=== PATIENT | female | born 1955 | race Caucasian/White ===

== ENCOUNTER 2016-09-09 17:45 | Emergency (ER) | payer MEDICAID ==
[2016-09-09 17:51] VITALS: BP 121/82; BMI 26.2
--- NOTE | 2016-09-09 18:26 | DR.GENAD ---
HPI - PCP Primary Care Physician: CHRISTA Eaton HPI Comment HPI Comment: HISTORY BELOW. - Complaint/Symptoms Chief Complaint Doctors Comments: PATIENT SAID SHE FEEL CONTRATION IN HER PELVIC AREA MAIN RLQ OF ABDOMEN. SHE BELIEVE SHE IS FOR 24 WEEKS. HER ABDOMEN IS GETTING BIGGER. NO VAGINAL BLEEDING OR DISCHARGE. HAVE 4 ADULT CHILDREN. NO VOMITING BUT NAUSEATED. Chief Complaint:: STATES SHE IS 23-24 WEEKS. CONTRACTIONS STARTING APPROX 0300 THIS AM. - Nurses notes reviewed Nurses Notes Review: Yes - Source History Provided: Patient - Mode of Arrival Mode of Arrival: Ambulatory - Timing Onset of Chief Complaint: 09/09/16 Came on: Suddenly - Duration Duration: Constant Duration: Days - Severity Severity: Moderate PMH - PMH Past Medical History: Yes Past Medical History: Arthritis, CHF, CVA, Hypertension, CO Past Surgical History: Yes Surgical History: , FOOD SERVICE Surgery - Family History History of Family Medical Conditions: No - Social History Does patient currently use any type of tobacco product: No Have you used tobacco products in the last 12 months: No Type of Tobacco Use: None Does any household member use tobacco: No Alcohol Use: None Do you use any recreational Drugs:: No Lives With: Spouse Lives Where: Home - infectious screening In the last 2 months have you had wt loss of >10#?: NO Have you had fever, night sweats or hemotysis?: No Have you traveled outside the country in the last 6 months?: No Isolation: Standard ROS - Review of Systems Constitutional: No Symptoms Reported Eyes: No Symptoms Reported ENTM: No Symptoms Reported Respiratoy: No Symptoms Reported Cardiovascular: No Symptoms Reported Gastrointestinal/Abdominal: Abdominal Pain, Nausea Genitourinary: Other (POST MENOPAUSAL FEMALE.). negative: Dysuria, Frequency, Hematuria Neurological: No Symptoms Reported Musculoskeletal: No Symptoms Reported Integumentary: No Symptoms Reported Hematologic/Lymphatic: No Symptoms Reported Endocrine: No Symptoms Reported All Other Systems: Reviewed and Negative PE - Vital Signs Vitals: Temperature 98.3 F Pulse Rate 111 Respiratory Rate 20 Blood Pressure 121/82 O2 Sat by Pulse Oximetry 98 - General Limitations: No Limitations General Appearance: Alert - Head Head Exam: Normal Inspection - Eyes Eye exam: Normal Appearance - ENT ENT Exam: Normal External Ear Exam External Ear Exam: Normal External Inspection TM/Canal Exam: Bilateral Normal Nose Exam: Normal Nose Exam Mouth Exam: Normal Inspection Throat Exam: Normal Inspection - Neck Neck Exam: Normal Inspection - Chest Chest Inspection: Symmetric Chest Wall Rise - Respiratory Respiratory Exam: Normal Lung Sounds Bilat Respiratory Exam: Bilateral Clear to Auscultation - Cardiovascular Cardiovascular Exam: Regular Rate, Normal Rhythm, Normal Heart Sounds - Abdominal Exam Abdominal Exam: Normal Bowel Sounds, Soft, Tenderness Abdominal Tenderness: RLQ (MOST TENDERNESS.), Diffuse, Moderate - Extremities Extremities Exam: Normal Inspection - Back Back Exam: Normal Inspection - Neurologic Neurological Exam: Alert, Oriented X3 - Psychiatric Psychiatric Exam: Normal Affect, Normal Mood - Skin Skin Exam: Normal Color MDM - Additional Information Additional Information Obtained From: Family - Differential Diagnosis Differential Diagnosis: ABDOMINAL PAIN, BOWEL OBSTRUCTION, UTERINE FIBROID, OVARIAN CYST, Course - Treatment Treatment: SEE ORDERS. - Education/Counseling Education/Counseling: Patient, Family, Education Educated On: Treatment, Diagnosis, Needs for Follow Up ROR - Labs Reviewed Laboratory Results Reviewed?: Yes Result Diagrams: 09/09/16 18:35 09/09/16 18:35 Laboratory: WBC 9.0 X10^3/uL (3.6-10.0) 09/09/16 18:35 RBC 4.34 X10^6/uL (3.5-5.4) 09/09/16 18:35 Hgb 13.3 g/dL (12.0-16.0) 09/09/16 18:35 Hct 38.1 % (36.0-47.0) 09/09/16 18:35 MCV 87.9 fL (80.0-100.0) 09/09/16 18:35 MCH 30.7 pg (27.0-34.0) 09/09/16 18:35 MCHC 35.0 g/dL (33.0-35.0) 09/09/16 18:35 RDW 14.0 % (11.6-16.5) 09/09/16 18:35 Plt Count 213 X10^3/uL (150.0-450.0) 09/09/16 18:35 MPV 9.1 fL (7.4-11.0) 09/09/16 18:35 Neut % 67.8 % (42.0-75.0) 09/09/16 18:35 Lymph % 22.9 % (21.0-51.0) 09/09/16 18:35 [place] % 6.4 % (0.0-13.0) 09/09/16 18:35 Eos % 2.1 % (0.9-2.9) 09/09/16 18:35 Baso % 0.8 % (0.2-1.0) 09/09/16 18:35 Neut # 6.1 x10^3/uL (2.2-4.8) H 09/09/16 18:35 Lymph # 2.1 X10^3/uL (1.3-2.9) 09/09/16 18:35 [place] # 0.6 x10^3/uL (0.3-0.8) 09/09/16 18:35 Eos # 0.2 x10^3/uL (0.0-0.2) 09/09/16 18:35 Baso # 0.1 X10^3/uL (0.0-0.1) 09/09/16 18:35 Absolute Nucleated RBC 0.0 /100WBC 09/09/16 18:35 Sodium 138 mmol/L (136-145) 09/09/16 18:35 Corrected Sodium 139 mmol/L (136-145) 09/09/16 18:35 Potassium 3.0 mmol/L (3.5-5.1) L* 09/09/16 18:35 Chloride 103 mmol/L (98-107) 09/09/16 18:35 Carbon Dioxide 24.5 mmol/L (21-32) 09/09/16 18:35 BUN 8 mg/dL (7-18) 09/09/16 18:35 Creatinine 1.04 mg/dL (0.55-1.02) H 09/09/16 18:35 Est GFR (MDRD) Af Amer > 60 (>60) 09/09/16 18:35 Est GFR (MDRD) Non-Af 57 (>60) L 09/09/16 18:35 Glucose 130 mg/dL (65-99) H 09/09/16 18:35 Calcium 8.3 mg/dL (8.5-10.1) L 09/09/16 18:35 Corrected Calcium TNP 09/09/16 18:35 Total Bilirubin 0.20 mg/dL (0.2-1.0) 09/09/16 18:35 AST 14 Units/L (15-37) L 09/09/16 18:35 ALT 21 Units/L (12-78) 09/09/16 18:35 Alkaline Phosphatase 62 Units/L (46-116) 09/09/16 18:35 Total Protein 7.2 g/dL (6.4-8.2) 09/09/16 18:35 Albumin 3.6 g/dL (3.4-5.0) 09/09/16 18:35 Globulin 3.6 g/dL (2.5-4.5) 09/09/16 18:35 Albumin/Globulin Ratio 1.0 Ratio (1.1-2.1) L 09/09/16 18:35 HCG, Qual Negative <10 mIU/mL 09/09/16 18:35 Specimen Type Clean catch urine 09/09/16 18:44 Urine Color Yellow (YELLOW) 09/09/16 18:44 Urine Appearance Clear (CLEAR) 09/09/16 18:44 Urine pH 7.0 (5.0 - 8.0) 09/09/16 18:44 Ur Specific [place] 1.010 (1.000-1.030) 09/09/16 18:44 Urine Protein Negative (NEGATIVE) 09/09/16 18:44 Urine Glucose (UA) Negative (NEGATIVE) 09/09/16 18:44 Urine Ketones Negative (NEGATIVE) 09/09/16 18:44 Urine Occult Blood 4+ (NEGATIVE) 09/09/16 18:44 Urine Nitrite Negative (NEGATIVE) 09/09/16 18:44 Urine Bilirubin Negative (NEGATIVE) 09/09/16 18:44 Urine Urobilinogen Normal (NORMAL) 09/09/16 18:44 Ur Leukocyte Esterase 1+ (NEGATIVE) 09/09/16 18:44 Urine RBC 0-3 /HPF (NEGATIVE) 09/09/16 18:44 Urine WBC 2-4 /HPF (NEGATIVE) 09/09/16 18:44 Ur Squamous Epith Cells Moderate /HPF (NEGATIVE) 09/09/16 18:44 Urine Bacteria Trace /HPF (NEGATIVE) 09/09/16 18:44 Ur Culture Indicated? No/not indicated 09/09/16 18:44 - XRAY XRAY Interpreted by: Radiologist XRAY Findings: REPORT DISCUSS WITH PATIENT. - Diagnosis Discharge Problem: Ovarian cyst, Pelvic pain, Hypokalemia - Discharge Plan Disposition: 01 HOME, SELF-CARE Condition: Stable Prescriptions: Naproxen [Naprosyn] 500 mg PO TID PRN #20 tab PRN Reason: Pain/Inflammation - Follow ups/Referrals Follow ups/Referrals: ANNA NIELSON [STAFF PHYSICIAN] - 2 days NFD,None [Primary Care Provider] - 2 days - Instructions Instructions: Pelvic Pain, Female, [id number], Ovarian Cyst, [id number] Additional Instructions: RETURN TO ED IF WORSE.
[2016-09-09 18:46] LABS: BASOPHILS # (AUTO) 0.1 X10^3/uL (0.0-0.1); BASOPHILS % (AUTO) 0.8 % (0.2-1.0); EOSINOPHILS # (AUTO) 0.2 x10^3/uL (0.0-0.2); EOSINOPHILS % (AUTO) 2.1 % (0.9-2.9); HEMATOCRIT 38.1 % (36.0-47.0); HEMOGLOBIN 13.3 g/dL (12.0-16.0); LYMPHOCYTES # (AUTO) 2.1 X10^3/uL (1.3-2.9); LYMPHOCYTES % (AUTO) 22.9 % (21.0-51.0); MEAN CORPUSCULAR HEMOGLOBIN 30.7 pg (27.0-34.0); MEAN CORPUSCULAR VOLUME 87.9 fL (80.0-100.0); MEAN PLATELET VOLUME 9.1 fL (7.4-11.0); MONOCYTES # (AUTO) 0.6 x10^3/uL (0.3-0.8); MONOCYTES % (AUTO) 6.4 % (0.0-13.0); NEUTROPHILS # (AUTO) 6.1 x10^3/uL (2.2-4.8); NEUTROPHILS % (AUTO) 67.8 % (42.0-75.0); PLATELET COUNT 213 X10^3/uL (150.0-450.0); RED BLOOD COUNT 4.34 X10^6/uL (3.5-5.4)
[2016-09-09 18:51] LABS: BLOOD UREA NITROGEN 8 mg/dL (7-18); CALCIUM 8.3 mg/dL (8.5-10.1); CARBON DIOXIDE 24.5 mmol/L (21-32); CHLORIDE 103 mmol/L (98-107); COR NA(FOR HYPERGLY) 139 mmol/L (136-145); CREATININE 1.04 mg/dL (0.55-1.02); GLUCOSE 130 mg/dL (65-99); SODIUM 138 mmol/L (136-145); eGFR BLACK RACES > 60 (>60); eGFR NON BLACK RACES 57 (>60)
[2016-09-09 18:54] LABS: SERUM PREGNANCY TEST, QUAL NEGATIVE <10 mIU/mL
[2016-09-09 18:56] LABS: ALANINE AMINOTRANSFERASE 21 Units/L (12-78); ALBUMIN 3.6 g/dL (3.4-5.0); ALKALINE PHOSPHATASE 62 Units/L (46-116); ASPARTATE AMINO TRANSFERASE 14 Units/L (15-37); TOTAL PROTEIN 7.2 g/dL (6.4-8.2)
[2016-09-09 18:57] LABS: BILIRUBIN,URINE NEGATIVE (NEGATIVE); BLOOD/HEMOGLOBIN,URINE 4+ (NEGATIVE); GLUCOSE, URINE NEGATIVE (NEGATIVE); KETONES,URINE NEGATIVE (NEGATIVE); LEUKOCYTE ESTERASE ,URINE 1+ (NEGATIVE); NITRITES,URINE NEGATIVE (NEGATIVE); PROTEIN,URINE NEGATIVE (NEGATIVE); UROBILINOGEN,URINE NORMAL (NORMAL)
[2016-09-09 19:02] LABS: APPEARANCE,URINE CLEAR (CLEAR); BACTERIA,URINE TRACE /HPF (NEGATIVE); COLOR,URINE YELLOW (YELLOW); RBC,URINE 0-3 /HPF (NEGATIVE); SQUAMOUS EPITHELIAL CELL,UR MODERATE /HPF (NEGATIVE)
[2016-09-09] MEDS ORDERED: POTASSIUM CHLORIDE LIQ 20 MEQ UDC PO ONE (19:48)
--- NOTE | 2016-09-09 21:19 | US ---
History: 61-year-old female reports to the emergency department complaining of abdominal pain secon juan to contractions and that she is . Exam: Pelvic ultrasound Comparison: None. Technique: Multiple grayscale and color flow Doppler images of the pelvis were obtained. Findings: Uterus is atrophic in appearance measuring 2.5 x 3.4 x 5.5 cm. No myometrial mass or calcification. Endometrial stripe measures 0.6 cm. Large right ovarian cyst measuring 13 x 9 x 13 cm without visualized ovarian tissue. Left ovary measures 2.6 x 3 x 3 cm with a 1.7 x 1.2 x 2.3 cm left ovarian cyst. There is no free fluid within the pelvis. IMPRESSION: 1. Large right ovarian cyst, with right ovary not visualized, followup with CREDIT VERIFICATION CLERK. 2. Small left ovarian cyst. 3. Atrophic appearance of the uterus with normal endometrial stripe and no evidence of intrauterine . Reported By:
[2016-09-09] MEDS ORDERED: NAPROSYN PO ONE ×2 (21:34→21:40)
== END 2016-09-09 21:41 | disposition home or self-care (01) ==
LOC: ER 17:57
DX: N83.201 Unspecified ovarian cyst, right side (principal); R10.2 Pelvic and perineal pain; E87.6 Hypokalemia; Z3A.24 24 weeks gestation of pregnancy
CPT/HCPCS: 36415; 76856; 80053; 81001; 84703; 85025; 99283